=== PATIENT | female | born 1970 | race Two or more races ===

== ENCOUNTER 2019-07-24 11:36 | Emergency (ER) | payer OTHER ==
[~2019-07-24] VITALS: Ht 162.6 cm; Wt 79.4 kg
[~2019-07-24 11:36] MED LIST: SYNTHROID88 MCG PO
[2019-07-24] MEDS ORDERED: SYNTHROID88 MCG PO (12:02)
[2019-07-24] MEDS ORDERED: AVAPRO300 MG PO (12:02)
[2019-07-24] MEDS ORDERED: NORVASC5 MG PO (12:03)
[2019-07-24] MEDS ORDERED: ZOFRAN8 MG PO (15:45)
[2019-07-24] MEDS ORDERED: DOLOGEN CAPLET1 EACH PO (15:45)
[2019-07-24] MEDS ORDERED: TUSNEL LIQUID178 ML PO (15:45)
[2019-07-24] MEDS ORDERED: PEPCID AC20 MG PO (15:45)
[2019-07-24] MEDS ORDERED: XOFLUZA40 MG PO (15:45)
== END 2019-07-24 16:57 | disposition home or self-care (01) ==
LOC: ER 11:36
DX: K29.60 Other gastritis without bleeding (principal); J11.1 Influenza due to unidentified influenza virus with other respiratory manifestations

== ENCOUNTER 2021-01-16 09:18 | Outpatient (CLI) | payer OTHER ==
[~2021-01-16 09:18] MED LIST changes: +AVAPRO300 MG PO; +DOLOGEN CAPLET1 EACH PO; +NORVASC5 MG PO; +PEPCID AC20 MG PO; +TUSNEL LIQUID178 ML PO; +XOFLUZA40 MG PO; +ZOFRAN8 MG PO
== END 2021-01-16 10:13 | disposition home or self-care (01) ==
LOC: SONOGRAMA 09:18
PROVIDERS: ATTEND Pathology Anatomic Pathology & Clinical Pathology
DX: E04.2 Nontoxic multinodular goiter (principal)

== ENCOUNTER 2024-08-18 10:39 | Emergency (ER) | payer OTHER ==
[~2024-08-18] VITALS: Ht 162.6 cm; Wt 79.4 kg
[2024-08-18] MEDS ORDERED: SIMETHICONE80 MG PO (10:49)
[2024-08-18] MEDS ORDERED: PROAIR RESPICL90 MCG (10:50)
[2024-08-18] MEDS ORDERED: KETOROLAC TROMETHAMINE 60 MG VIAL IM STA (11:24)
[2024-08-18] MEDS ORDERED: ORPHENADRINE CITRATE 30 MG/ML AMPUL IM STA (11:24)
[2024-08-18] MEDS ORDERED: ORPHENADRINE CITRATE 30 MG/ML AMPUL ONE (11:34)
[2024-08-18] MEDS ORDERED: KETOROLAC TROMETHAMINE 60 MG VIAL IM ONE (11:34)
== END 2024-08-18 13:41 | disposition home or self-care (01) ==
LOC: ER 10:41
DX: M51.26 Other intervertebral disc displacement, lumbar region (principal); E03.9 Hypothyroidism, unspecified; Z87.09 Personal history of other diseases of the respiratory system